=== PATIENT | female | born 1980 | race Hispanic/Latino ===

== ENCOUNTER 2017-07-27 16:53 | Emergency (ER) | payer SELFPAY ==
[~2017-07-27] VITALS: Ht 154.9 cm; Wt 65.8 kg
[~2017-07-27 16:53] MED LIST: LEVSIN-SL0.125 MG SL; NEXIUM20 MG PO; ZOFRAN ODT4 MG PO
== END 2017-07-27 17:19 | disposition home or self-care (01) ==
LOC: ED 16:53
DX: R05 Cough (principal); Z00.8 Encounter for other general examination

== ENCOUNTER 2017-12-08 02:05 | Emergency (ER) | payer OTHER ==
[~2017-12-08] VITALS: Ht 154.9 cm; Wt 65.8 kg
== END 2017-12-08 04:13 | disposition home or self-care (01) ==
LOC: ED 02:05
DX: R10.13 Epigastric pain (principal); F17.200 Nicotine dependence, unspecified, uncomplicated
CPT/HCPCS: 80053; 81001; 83690; 84703; 85025; 96374; 96375; 99284; J2270; J2405; J7030

== ENCOUNTER 2018-01-25 07:02 | Emergency (ER) | payer OTHER ==
[~2018-01-25] VITALS: Ht 154.9 cm; Wt 68.0 kg
[2018-01-25] MEDS ORDERED: NORCO 5-325 TA1 EACH PO (09:49)
[2018-01-25] MEDS ORDERED: OMEPRAZOLE20 MG PO (09:49)
[2018-01-25] MEDS ORDERED: PROMETHAZINE HC25 M1 PO (10:06)
== END 2018-01-25 10:15 | disposition home or self-care (01) ==
LOC: ED 07:02
DX: K44.9 Diaphragmatic hernia without obstruction or gangrene (principal); K29.70 Gastritis, unspecified, without bleeding; F17.200 Nicotine dependence, unspecified, uncomplicated
CPT/HCPCS: 74177; 80053; 81001; 83690; 84703; 85025; 96361; 96374; 96375; 99284; J1170; J1885; J2405; J2550; J7030; Q9967

== ENCOUNTER 2018-11-01 10:49 | Emergency (ER) | payer OTHER ==
[~2018-11-01] VITALS: Ht 154.9 cm; Wt 68.0 kg
[~2018-11-01 10:49] MED LIST changes: +AUGMENTIN 875-1 EACH PO; +KETOROLAC TROME10 MG PO; +NORCO 5-325 TA1 EACH PO; +OMEPRAZOLE20 MG PO; +PROMETHAZINE HC25 M1 PO
--- OUTSIDE RECORDS SUMMARY | 2018-11-01 10:56 | XMS ---
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 Security Restaurant Kitchen And Service Manager Events No recent Security Events currently on file CRITERIA MET - Group Notification - [facility] - Has Care Guidelines CARE PROVIDERS ESTEPHANIE ALMEIDA Nurse Practitioner: Women's Health 04/10/2018-Current PHONE: [phone] ESTEPHANIE ALMEIDA Primary Care Current PHONE: [phone] Darlin has no Care Guidelines for this patient. Care History Medical/Surgical 04/17/2018 [facility] Care Recommendation: - Patient DOES NOT have a PCP. - Please refer patient to [facility]: [address] [place] [address], [place] [address] This patient has had 5 or more Emergency Department visits in the last 12 months.\T\nbsp; Patient requires education on the scope and purpose of the ED as an acute care provider not a Primary Care Provider and should not be utilized for chronic conditions.\T\nbsp; If patient returns to ED please contact Community Health WorkerChristina at [phone]. These are guidelines and the provider should exercise clinical judgment when providing care. Meghan VISIT COUNT (12 MO.) 6 [facility] Gilles[facility] TOTAL 6 NOTE: Visits indicate total known visits. ED/UCC VISIT TRACKING (12 MO.) 11/01/2018 10:50 [facility] [place] TYPE: Emergency COMPLAINT: - COUGH,CHEST PRESSURE 04/13/2018 15:06 [facility] [place] TYPE: Emergency COMPLAINT: - POSS R LEG INFECTION DIAGNOSES: - Laceration without foreign body, right lower leg, subsequent encounter - Exposure to other specified factors, subsequent encounter - Local infection of the skin and subcutaneous tissue, unspecified - Nicotine dependence, unspecified, uncomplicated 04/09/2018 13:03 [facility] [place] TYPE: Emergency COMPLAINT: - WOUND CHECK,POST OP DIAGNOSES: - Nicotine dependence, unspecified, uncomplicated - Infection following a procedure, initial encounter - Encounter for surgical aftercare following surgery on the skin and subcutaneous tissue 04/05/2018 21:57 [facility] [place] TYPE: Emergency COMPLAINT: - RT LEG LAC/LT ARM LAC/INJURY DIAGNOSES: - Laceration without foreign body, right lower leg, initial encounter - Encounter for immunization - Contusion of right hand, initial encounter - Nicotine dependence, unspecified, uncomplicated - Striking against or struck by other objects, initial encounter 01/25/2018 07:02 [facility] [place] TYPE: Emergency COMPLAINT: - ABD PAIN DIAGNOSES: - Diaphragmatic hernia without obstruction or gangrene - Gastritis, unspecified, without bleeding - Epigastric pain - Nicotine dependence, unspecified, uncomplicated 12/08/2017 02:05 [facility] [place] TYPE: Emergency COMPLAINT: - CHEST PAIN DIAGNOSES: - Nicotine dependence, unspecified, uncomplicated - Epigastric pain INPATIENT VISIT TRACKING (12 MO.) No inpatient visits to display in this time frame [email or web address]
[2018-11-01] MEDS ORDERED: TYLENOL WITH C1 EACH PO (12:39)
== END 2018-11-01 13:25 | disposition home or self-care (01) ==
LOC: ED 10:49
DX: J06.9 Acute upper respiratory infection, unspecified (principal); F17.200 Nicotine dependence, unspecified, uncomplicated; Z90.49 Acquired absence of other specified parts of digestive tract
CPT/HCPCS: 99283

== ENCOUNTER 2018-11-12 09:48 | Emergency (ER) | payer OTHER ==
[~2018-11-12] VITALS: Ht 154.9 cm; Wt 77.1 kg
[~2018-11-12 09:48] MED LIST changes: +TYLENOL WITH C1 EACH PO
--- OUTSIDE RECORDS SUMMARY | 2018-11-12 09:52 | XMS ---
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 Security Drilling Engineering Manager Events No recent Security Events currently on file CRITERIA MET - - Has Care Guidelines - - 2 Visits in 30 Days CARE PROVIDERS ESTEPHANIE ALMEIDA Nurse Practitioner: Women's Health 04/10/2018-Current PHONE: [phone] ESTEPHANIE ALMEIDA Primary Care Current PHONE: [phone] Darlin has no Care Guidelines for this patient. Care History Medical/Surgical 11/02/2018 [facility] - Patient is currently established with [facility]. If patient is seen in the ED during business hours. Please contact CHWs at [facility]. Care Recommendation: This patient has had 5 or more Emergency Department visits in the last 12 months.\T\nbsp; Patient requires education on the scope and purpose of the ED as an acute care provider not a Primary Care Provider and should not be utilized for chronic conditions.\T\nbsp; These are guidelines and the provider should exercise clinical judgment when providing care. E.D. VISIT COUNT (12 MO.) 7 GOLDY Gillespie TOTAL 7 NOTE: Visits indicate total known visits. ED/UCC VISIT TRACKING (12 MO.) 11/12/2018 09:49 [facility] [place] TYPE: Emergency COMPLAINT: - ABD PAIN 11/01/2018 10:50 [facility] [place] TYPE: Emergency COMPLAINT: - COUGH,CHEST PRESSURE DIAGNOSES: - Acute upper respiratory infection, unspecified - Nicotine dependence, unspecified, uncomplicated - Acquired absence of other specified parts of digestive tract - Cough 04/13/2018 15:06 [facility] [place] TYPE: Emergency [...] by other objects, initial encounter 01/25/2018 07:02 [facility] [place] TYPE: Emergency COMPLAINT: - ABD PAIN DIAGNOSES: - Diaphragmatic hernia without obstruction or gangrene - Gastritis, unspecified, without bleeding - Epigastric pain - Nicotine dependence, unspecified, uncomplicated 12/08/2017 02:05 [facility] [place] TYPE: Emergency COMPLAINT: - CHEST PAIN DIAGNOSES: - Nicotine dependence, unspecified, uncomplicated - Epigastric pain INPATIENT VISIT TRACKING (12 MO.) No inpatient visits to display in this time frame [email or web address]
[2018-11-12] MEDS ORDERED: CYCLOBENZAPRINE5 MG PO (16:20)
[2018-11-12] MEDS ORDERED: FERROUS FUMARA324 MG PO (16:20)
== END 2018-11-12 16:40 | disposition home or self-care (01) ==
LOC: ED 09:48
DX: R10.9 Unspecified abdominal pain (principal); G43.909 Migraine, unspecified, not intractable, without status migrainosus; F17.200 Nicotine dependence, unspecified, uncomplicated
CPT/HCPCS: 36415; 74177; 80053; 81001; 83690; 85025; 96361; 99284-25; 99406; J1885; J7030; Q9967

== ENCOUNTER 2019-02-24 09:27 | Emergency (ER) | payer OTHER ==
[~2019-02-24] VITALS: Ht 154.9 cm; Wt 77.1 kg
[~2019-02-24 09:27] MED LIST changes: +CYCLOBENZAPRINE5 MG PO; +FERROUS FUMARA324 MG PO
--- OUTSIDE RECORDS SUMMARY | 2019-02-24 09:30 | XMS ---
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 Security Muskrat Trapper Events No recent Security Events currently on file CRITERIA MET - [facility] - Has Care Guidelines CARE PROVIDERS ESTEPHANIE ALMEIDA Nurse Practitioner: Women's Health 04/10/2018-Current PHONE: [phone] ESTEPHANIE ALMEIDA Primary Care Current PHONE: [phone] Darlin has no Care Guidelines for this patient. Care History Medical/Surgical 11/23/2018 [facility] - CHW MADE REFERRAL TO [facility] -CASE MANAGEMENT - PATIENT DECLINED SERVICES/HELP FROM [facility]. 11/02/2018 [facility] - Patient is currently established with [facility]. If patient is seen in the ED during business hours. Please contact CHWs at [facility]. Care Recommendation: This patient has had 5 [...] known visits. ED/UCC VISIT TRACKING (12 MO.) 02/24/2019 09:27 [facility] [place] TYPE: Emergency COMPLAINT: - HEADACHE, VOMITING 11/12/2018 09:49 [facility] [place] TYPE: Emergency COMPLAINT: - ABD PAIN DIAGNOSES: - Migraine, unspecified, not intractable, without status migrainosus - Unspecified abdominal pain - Nausea - Nicotine dependence, unspecified, uncomplicated 11/01/2018 10:50 [facility] [place] TYPE: Emergency [...] the skin and subcutaneous tissue 04/05/2018 21:[address] [facility] [place] TYPE: Emergency COMPLAINT: - RT LEG LAC/LT ARM LAC/INJURY DIAGNOSES: - Laceration without foreign body, right lower leg, initial encounter - Encounter for immunization - Contusion of right hand, initial encounter - Nicotine dependence, unspecified, uncomplicated - Striking against or struck by other objects, initial encounter INPATIENT VISIT TRACKING (12 MO.) No inpatient visits to display in this time frame [email or web address]
== END 2019-02-24 10:25 | disposition home or self-care (01) ==
LOC: ED 09:27
DX: R51 Headache (principal); F17.200 Nicotine dependence, unspecified, uncomplicated
CPT/HCPCS: 96372; 99283-25; J1885

== ENCOUNTER 2019-06-22 23:34 | Emergency (ER) | payer OTHER ==
[~2019-06-22] VITALS: Ht 154.9 cm; Wt 77.1 kg
--- OUTSIDE RECORDS SUMMARY | 2019-06-22 23:36 | XMS ---
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 Security Label Drier Events No recent Security Events currently on file CRITERIA MET - [facility] Care Guidelines CARE PROVIDERS Umer Ordonez Internal Medicine: Pulmonary Disease 04/03/2019-Current PHONE: Unknown ESTEPHANIE ALMEIDA Nurse Practitioner: Women's Health 04/10/2018-Current PHONE: [phone] ESTEPHANIE ALMEIDA Primary Care Current PHONE: [phone] Darlin has no Care Guidelines for this patient. Care History Medical/Surgical 11/23/2018 [facility] - CHW MADE REFERRAL TO [facility] -CASE MANAGEMENT - PATIENT DECLINED SERVICES/HELP FROM [facility]. 11/02/2018 [facility] - Patient is currently established with [facility]. If patient is seen in the ED during business hours. Please contact CHWs at [facility]. Care Recommendation: This patient has had 5 [...] providing care. E.D. VISIT COUNT (12 MO.) 5 [facility]. TOTAL 5 NOTE: Visits indicate total known visits. ED/UCC VISIT TRACKING (12 MO.) 06/22/2019 23:[address] [facility] [place] TYPE: Emergency COMPLAINT: - SKIN PROBLEM 04/02/2019 16:[address] [facility] [address] [facility] [place] TYPE: Emergency COMPLAINT: - MIGRAINE DIAGNOSES: - Migraine, unsp, not intractable, without status migrainosus - Nicotine dependence, unspecified, uncomplicated 02/24/2019 09:[address] [facility] [address] [facility] [place] TYPE: Emergency COMPLAINT: - HEADACHE, VOMITING DIAGNOSES: - Nicotine dependence, unspecified, uncomplicated - Headache 11/12/2018 09:[address] [facility] [address] [facility] [place] TYPE: Emergency COMPLAINT: - ABD PAIN DIAGNOSES: - Migraine, unsp, not intractable, without status migrainosus - Unspecified abdominal pain - Nausea - Nicotine dependence, unspecified, uncomplicated 11/01/2018 10:[address] [facility] [place] TYPE: Emergency COMPLAINT: - COUGH,CHEST PRESSURE DIAGNOSES: - Acute upper respiratory infection, unspecified - Nicotine dependence, unspecified, uncomplicated - Acquired absence of other specified parts of digestive tract - Cough INPATIENT VISIT TRACKING (12 MO.) No inpatient visits to display in this time frame [id number]
[2019-06-23] MEDS ORDERED: ANUSOL-HC30 GM PR (00:37)
[2019-06-23] MEDS ORDERED: COLACE100 MG PO (00:37)
[2019-06-23] MEDS ORDERED: TRAMADOL HCL50 MG PO (00:37)
== END 2019-06-23 01:00 | disposition home or self-care (01) ==
LOC: ED 23:34
DX: K64.4 Residual hemorrhoidal skin tags (principal); F17.200 Nicotine dependence, unspecified, uncomplicated
CPT/HCPCS: 99282

== ENCOUNTER 2019-07-06 04:30 | Emergency (ER) | payer OTHER ==
[~2019-07-06] VITALS: Ht 154.9 cm; Wt 77.1 kg
[~2019-07-06 04:30] MED LIST changes: +ANUSOL-HC30 GM PR; +COLACE100 MG PO; +TRAMADOL HCL50 MG PO
--- OUTSIDE RECORDS SUMMARY | 2019-07-06 04:32 | XMS ---
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 Security Career Services Officer Events No recent Security Events currently on file CRITERIA MET - [facility] - Has Care Guidelines - [facility] - 2 Visits in 30 Days CARE PROVIDERS Umer Ordonez Internal Medicine: Pulmonary Disease 04/03/2019-Current PHONE: Unknown ESTEPHANIE ALMEIDA Nurse Practitioner: Women's Health 04/10/2018-Current PHONE: [phone] ESTEPHANIE ALMEIDA Primary Care Current PHONE: [phone] Darlin has no Care Guidelines for this patient. Care History Medical/Surgical 11/23/2018 [facility] - W MADE REFERRAL TO [facility] -CASE MANAGEMENT - PATIENT DECLINED SERVICES/HELP FROM [facility]. 11/02/2018 [facility] - Patient is currently established with [facility]. If patient is seen in the ED during business hours. Please contact CHWs at [facility]. Care Recommendation: This patient has had [...] providing care. E.D. VISIT COUNT (12 MO.) 6 [facility]. TOTAL 6 NOTE: Visits indicate total known visits. ED/UCC VISIT TRACKING (12 MO.) 07/06/2019 04:[address] [facility] [place] TYPE: Emergency COMPLAINT: - RT LEG WOUND 06/22/2019 23:[address] [facility] [place] TYPE: Emergency COMPLAINT: - SKIN PROBLEM DIAGNOSES: - Residual hemorrhoidal skin tags - Nicotine dependence, unspecified, uncomplicated - Disorder of the skin and subcutaneous tissue, unspecified 04/02/2019 16:[address] [facility] [place] TYPE: Emergency COMPLAINT: - MIGRAINE DIAGNOSES: - Migraine, unsp, not intractable, without status migrainosus - Nicotine dependence, unspecified, uncomplicated 02/24/2019 09:[address] [facility] [place] TYPE: Emergency COMPLAINT: - HEADACHE, VOMITING DIAGNOSES: - Nicotine dependence, unspecified, uncomplicated - Headache 11/12/2018 09:49 [facility] [place] TYPE: Emergency [...] visits to display in this time frame [id number]
== END 2019-07-06 05:17 | disposition home or self-care (01) ==
LOC: ED 04:30
DX: S81.811A Laceration without foreign body, right lower leg, initial encounter (principal); F17.200 Nicotine dependence, unspecified, uncomplicated; Y04.0XXA Assault by unarmed brawl or fight, initial encounter
CPT/HCPCS: 90471; 90715; 99282-25

== ENCOUNTER 2019-09-15 00:12 | Emergency (ER) | payer OTHER ==
[~2019-09-15] VITALS: Ht 154.9 cm; Wt 74.8 kg
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
[2019-09-15] MEDS ORDERED: ZOFRAN4 MG PO (02:59)
[2019-09-15] MEDS ORDERED: PROTONIX40 MG PO (02:59)
== END 2019-09-15 03:17 | disposition home or self-care (01) ==
LOC: ED 00:12
DX: R10.9 Unspecified abdominal pain (principal); M79.642 Pain in left hand; M25.572 Pain in left ankle and joints of left foot; F17.200 Nicotine dependence, unspecified, uncomplicated
CPT/HCPCS: 73130; 73610; 73630; 80053; 81001; 83690; 84703; 85025; 96361; 96374; 96375; 96376; 99284-25; C9113; J1885; J2405; J7030

== ENCOUNTER 2019-10-17 09:42 | Emergency (ER) | payer OTHER ==
[~2019-10-17] VITALS: Ht 154.9 cm; Wt 74.8 kg
[~2019-10-17 09:42] MED LIST changes: +PROTONIX40 MG PO; +ZOFRAN4 MG PO
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
== END 2019-10-17 12:42 | disposition home or self-care (01) ==
LOC: ED 09:42
DX: G43.909 Migraine, unspecified, not intractable, without status migrainosus (principal); F17.200 Nicotine dependence, unspecified, uncomplicated; Z79.899 Other long term (current) drug therapy
CPT/HCPCS: 96372; 99283; 99406; J1100; J1200; J2765

== ENCOUNTER 2019-12-11 18:42 | Emergency (ER) | payer OTHER ==
[~2019-12-11] VITALS: Ht 154.9 cm; Wt 74.8 kg
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
[2019-12-11] MEDS ORDERED: FEOSOL325 MG PO (19:26)
== END 2019-12-11 19:53 | disposition home or self-care (01) ==
LOC: ED 18:42
DX: J06.9 Acute upper respiratory infection, unspecified (principal); L29.9 Pruritus, unspecified; Z20.5 Contact with and (suspected) exposure to viral hepatitis; F17.200 Nicotine dependence, unspecified, uncomplicated; Z90.49 Acquired absence of other specified parts of digestive tract; Z79.899 Other long term (current) drug therapy
CPT/HCPCS: 99283

== ENCOUNTER 2020-02-04 15:44 | Emergency (ER) | payer OTHER ==
[~2020-02-04] VITALS: Ht 154.9 cm; Wt 68.0 kg
[~2020-02-04 15:44] MED LIST changes: +FEOSOL325 MG PO
--- OUTSIDE RECORDS SUMMARY | 2020-02-04 15:46 | XMS ---
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 Security Automation Machine Operator Events No recent Security Events currently on file CRITERIA MET - [facility] - Has Care Guidelines CARE PROVIDERS ESTEPHANIE ALMEIDA Nurse Practitioner: Women's Health 04/10/2018-Current PHONE: [phone] CYDNEY GARCIA Internal Medicine: Pulmonary Disease 04/03/2019-Current PHONE: Unknown Darlin has no Care Guidelines for this patient. Care History Medical/Surgical 12/12/2019 [facility] - Patient is currently established with [facility]. If patient is seen in the ED during business hours. Please contact CHWs at [facility]. Care Recommendation: If this patient has had 5 or more Emergency Department visits in the last 12 months.\T\nbsp; Patient will require education on the scope and purpose of the ED as an acute care provider not a Primary Care Provider and should not be utilized for chronic conditions.\T\nbsp; These are guidelines and the provider should exercise clinical judgment when providing care. 10/18/2019 [facility] - NO PCP LETTER SENT TO PATIENT. 09/16/2019 [facility] This patient is not currently established with our clinic. Meghan VISIT COUNT (12 MO.) 8 [facility] René TOTAL 8 NOTE: Visits indicate total known visits. ED/UCC VISIT TRACKING (12 MO.) 02/04/2020 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
[2020-02-04] MEDS ORDERED: OMEPRAZOLE40 MG PO (16:01)
[2020-02-04] MEDS ORDERED: NORCO 5-325 TA1 EACH PO (16:40)
[2020-02-04] MEDS ORDERED: NAPROSYN500 MG PO (16:40)
== END 2020-02-04 17:12 | disposition home or self-care (01) ==
LOC: ED 15:44
DX: S92.515A Nondisplaced fracture of proximal phalanx of left lesser toe(s), initial encounter for closed fracture (principal); G43.909 Migraine, unspecified, not intractable, without status migrainosus; F17.200 Nicotine dependence, unspecified, uncomplicated; Z79.899 Other long term (current) drug therapy; W22.01XA Walked into wall, initial encounter
CPT/HCPCS: 73630; 99283-25

== ENCOUNTER 2020-02-09 23:44 | Emergency (ER) | payer OTHER ==
[~2020-02-09] VITALS: Ht 154.9 cm; Wt 68.0 kg
[~2020-02-09 23:44] MED LIST changes: +NAPROSYN500 MG PO; +OMEPRAZOLE40 MG PO
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
== END 2020-02-10 00:55 | disposition home or self-care (01) ==
LOC: ED 23:44
DX: M79.662 Pain in left lower leg (principal); M79.652 Pain in left thigh; G43.909 Migraine, unspecified, not intractable, without status migrainosus; F17.200 Nicotine dependence, unspecified, uncomplicated; Z79.899 Other long term (current) drug therapy
CPT/HCPCS: 85379; 99283; A9270

== ENCOUNTER 2020-02-22 14:14 | Emergency (ER) | payer OTHER ==
[~2020-02-22] VITALS: Ht 154.9 cm; Wt 68.0 kg
--- OUTSIDE RECORDS SUMMARY | 2020-02-22 14:16 | XMS ---
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 Care History Medical/Surgical 02/11/2020 [facility] Patient scheduled for follow up with Dr. Madera on 02/26/2020. 02/05/2020 [facility] Have asked MA to coordinate ED follow up apt for Patient. 12/12/2019 [facility] - Patient is currently established with [facility]. If patient is seen in the ED during business hours. Please contact CHWs at [facility]. Care Recommendation: If this patient has had 5 or more Emergency Department visits in the last 12 months.\T\nbsp; Patient will require education on the scope and purpose of the ED as an acute care provider not a Primary Care Provider and should not be utilized for chronic conditions.\T\nbsp; These are guidelines and the provider should exercise clinical judgment when providing care. EYony. VISIT COUNT (12 MO.) 10 [facility] Gillespie TOTAL 10 NOTE: Visits indicate total known visits. 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 - Nondisplaced fracture of proximal phalanx of left lesser toe( - Nicotine dependence, unspecified, uncomplicated - Pain in left toe(s) - Walked into wall, initial encounter - Migraine, unspecified, not intractable, without status migrai 12/11/2019 18:43 [facility] [place] TYPE: Emergency COMPLAINT: - SKIN PROBLEM/SORE THROAT DIAGNOSES: - Contact with and (suspected) exposure to viral hepatitis - 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 [facility] [place] TYPE: Emergency COMPLAINT: - MIGRAINE DIAGNOSES: - Migraine, unspecified, not intractable, without status migrai - Nicotine dependence, unspecified, uncomplicated 02/24/2019 09:[address] [facility] [facility] [place] TYPE: Emergency COMPLAINT: - HEADACHE, VOMITING DIAGNOSES: - Nicotine dependence, unspecified, uncomplicated - Headache INPATIENT VISIT TRACKING (12 MO.) No inpatient visits to display in this time frame [email or web address]
[2020-02-22] MEDS ORDERED: FLAGYL500 MG PO (14:22)
[2020-02-22] MEDS ORDERED: BISMATROL262 MG PO (14:23)
[2020-02-22] MEDS ORDERED: TETRACYCLINE H500 MG PO (14:23)
--- NOTE | 2020-02-23 11:40 | EKG ---
[facility] [address] [facility] [place], [place] [address] Signed Normal sinus rhythm Normal ECG No previous ECGs available Confirmed by GHAZALA LUO MD ([id number]) on 02/23/2020 11:40:09 AM Electronically Signed By: GHAZALA LUO MD 02/23/20 1140 PATIENT NAME: HERBERTH GURROLA Electrocardiogram DATE OF : 76 PHYSICIAN: GHAZALA LUO MD REPORT #: [id number] REPORT IS CONFIDENTIAL AND NOT TO BE RELEASED WITHOUT AUTHORIZATION
== END 2020-02-22 16:30 | disposition home or self-care (01) ==
LOC: ED 14:14
DX: K27.9 Peptic ulcer, site unspecified, unspecified as acute or chronic, without hemorrhage or perforation (principal); G43.909 Migraine, unspecified, not intractable, without status migrainosus; F17.200 Nicotine dependence, unspecified, uncomplicated; Z79.899 Other long term (current) drug therapy
CPT/HCPCS: 71045; 80053; 83690; 83735; 84484; 85025; 93005; 93010; 96374; 99285-25; J1885

== ENCOUNTER 2020-04-12 11:10 | Emergency (ER) | payer OTHER ==
[~2020-04-12] VITALS: Ht 154.9 cm; Wt 68.0 kg
[~2020-04-12 11:10] MED LIST changes: +BISMATROL262 MG PO; +FLAGYL500 MG PO; +TETRACYCLINE H500 MG PO
--- OUTSIDE RECORDS SUMMARY | 2020-04-12 11:14 | XMS ---
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 Care History Medical/Surgical 02/24/2020 [facility] Patient was advised that walk in clinic closed at time of service in ED and care ride would not take her to Urgent Care at [facility] without charging her.\T\nbsp; Patient aware of scheduled\T\nbsp; follow up on 02/26/[address] Ordonez. 02/11/2020 [facility] Patient scheduled for follow up with Dr. Ordonez on 02/26/2020. 02/05/2020 [facility] Have asked [place] to coordinate ED follow up apt for Patient. [place] VISIT COUNT (12 MO.) 9 [facility] H. TOTAL 9 NOTE: Visits indicate total known visits. ED/C VISIT TRACKING (12 MO.) 04/12/2020 11:[address] [facility] [facility] [place] TYPE: Emergency COMPLAINT: - ABD PAIN 02/22/2020 14:15 [facility] [place] TYPE: Emergency COMPLAINT: - CHEST PAIN DIAGNOSES: - Nicotine dependence, unspecified, uncomplicated - Other jail (current) drug therapy - Migraine, unspecified, not intractable, without status migrai - Peptic ulcer, site unspecified, unspecified as acute or chron - Chest pain, unspecified 02/09/2020 23:45 [facility] [place] TYPE: Emergency COMPLAINT: - LEG INJURY/PAIN DIAGNOSES: - Pain in left lower leg - Other jail (current) drug therapy - Migraine, unspecified, not intractable, without status migrai - Pain in left lower leg - Pain in left thigh - Nicotine dependence, unspecified, uncomplicated 02/04/2020 15:45 [facility] [place] TYPE: Emergency COMPLAINT: - L FOOT INJURY DIAGNOSES: - Other jail (current) drug therapy - Nondisplaced fracture of proximal phalanx of left lesser toe( - Nicotine dependence, unspecified, uncomplicated - Pain in left toe(s) - Walked into wall, initial encounter - Migraine, unspecified, not intractable, without status migrai 12/11/2019 18:43 [facility] [place] TYPE: Emergency COMPLAINT: - SKIN PROBLEM/SORE THROAT DIAGNOSES: - Contact with and (suspected) exposure to viral hepatitis - Other jail (current) drug therapy - Pruritus, unspecified - Acquired absence of other specified parts of digestive tract - Acute upper respiratory infection, unspecified - Nicotine dependence, unspecified, uncomplicated [facility] COMPLAINT: - POSS SPIDER BITE, NAUSEA DIAGNOSES: - Headache - 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
[2020-04-12] MEDS ORDERED: CARAFATE1 GM PO (13:32)
== END 2020-04-12 14:00 | disposition home or self-care (01) ==
LOC: ED 11:10
DX: K27.9 Peptic ulcer, site unspecified, unspecified as acute or chronic, without hemorrhage or perforation (principal); G43.909 Migraine, unspecified, not intractable, without status migrainosus; F17.200 Nicotine dependence, unspecified, uncomplicated; Z79.899 Other long term (current) drug therapy
CPT/HCPCS: 80053; 81001; 83690; 84703; 85025; 96372; 99284; J1885; J2270

== ENCOUNTER 2020-04-21 05:45 | Day surgery (SDC) | payer OTHER ==
[~2020-04-21] VITALS: Ht 154.9 cm; Wt 75.8 kg
[~2020-04-21 05:45] MED LIST changes: +CARAFATE1 GM PO
[2020-04-21] MEDS ORDERED: IRON325 M1 PO (05:59)
--- NOTE | 2020-04-21 08:08 | NUR ---
04/21/20 0808 Corrine Garza 0803 PATIENT ARRIVES TO PACU SLEEPING, OPENS EYES TO VERBAL STIMULI, THEN BACK TO SLEEP RESP EVEN AND UNLABORED, SNORING. NC AT 2 LITERS.
--- NOTE | 2020-04-21 09:34 | OR ---
[facility] [address] [place], [place] [address] Signed DATE OF OPERATION: 04/21/2020 SURGEON: Karissa Gomez MD PREOPERATIVE DIAGNOSES: 1. Iron deficiency anemia. 2. Epigastric abdominal pain. 3. History of Helicobacter pylori. 4. Heartburn. 5. Nausea. 6. Diarrhea. POSTOPERATIVE DIAGNOSES: 1. Mild diffuse gastroduodenitis. 2. Shallow antral gastric ulcer. 3. Small hiatal hernia. 4. A 3 mm polyp at 30 cm. 5. Minimal internal hemorrhoids. PROCEDURES: 1. EGD with CLOtest and biopsies of the duodenum, pyloric bulb, antrum, and GE junction. 2. Colonoscopy with cold biopsies of the terminal ileum and throughout the colon along with a hot biopsy of the polyp. ESTIMATED BLOOD LOSS: None. INDICATIONS: Herberth is a 39-year-old female, asked to see me for both upper and lower endoscopy. She is having trouble with iron deficiency anemia. She also told me she is having heavy periods and had to double up on her pads and so forth. She has had a previous tubal ligation. She is aware that she may need a hysterectomy. She is also describing significant epigastric abdominal pain. Her H pylori stool antigen came back positive. She took omeprazole, bismuth, tetracycline, and metronidazole. Despite this, she continues upper abdominal pain. She has moved up here from [place], [place]. Back in [place], she had her gallbladder removed in 2005. In the office, I gave her a pamphlet on both upper and lower endoscopy. We reviewed the nature of the 2 tests along with the risks including, but not limited to gas bloating, crampy abdominal pain, bleeding, perforation requiring surgery, and missed diagnosis. We also discussed the need for IV conscious sedation. She had expressed understanding and wished to proceed. Electronically Signed By: KARISSA GOMEZ MD 04/21/20 0934 PATIENT NAME: HERBERTH GURROLA OPERATIVE REPORT DATE OF : 76 REPORT #: [id number] PHYSICIAN: KARISSA GOMEZ MD PCP: ESTELITA LAMAS MD REPORT IS CONFIDENTIAL AND NOT TO BE RELEASED WITHOUT AUTHORIZATION [facility] [address] [place], [place] [address] Signed PROCEDURE NOTE: Herberth was taken into our endoscopy suite and placed in the supine semi-recumbent position. She was given a total of 6 mg of Versed and 150 mcg of fentanyl to cover both cases. The posterior oropharynx was anesthetized with lidocaine spray. A bite block was utilized for the case. The adult gastroscope was introduced and advanced under direct visualization of camera, out into the third portion of the duodenum without difficulty. The duodenum itself looked healthy. We took a biopsy from the duodenum because of the history of diarrhea. She had some mild diffuse inflammatory changes of the pyloric bulb in her stomach. We went ahead and took a biopsy of the pyloric bulb in the antrum for pathologic review. She had what looks like a very shallow ulceration in the antrum. We took a biopsy of that for pathologic review. We took another biopsy of the antrum for CLOtest. The incisura body and fundus of the stomach were unremarkable except for very mild inflammatory changes. Upon retroflexion of scope, she does have a small hiatal hernia. The scope was withdrawn up through the area of the GE junction, which was compliant without stricture. There was no gastric or esophageal varices. She had very minimal disruption to her Z-line. There was no Jeffers's mucosa and no distal esophagitis. We took a biopsy of the edge of the Z-line for pathologic review. The middle and upper esophagus were unremarkable. After this, the gas had been suctioned out and the gastroscope was removed. Herberth tolerated her upper endoscopy quite well. Herberth was rotated into the left lateral decubitus position. She was maintained on IV sedation with the Versed and fentanyl. A digital rectal exam was performed and this was unremarkable. The adult colonoscope was introduced and advanced under direct visualization of camera without difficulty. Her prep was quite excellent. We could easily see the appendiceal orifice and the ileocecal valve. We took pictures throughout for photodocumentation. We turned the camera into the terminal ileum only 3 to 5 cm. We could not get the camera to advance any further. It looked quite healthy. We went ahead and took a biopsy out of the terminal ileum because of the history of diarrhea. The scope was then slowly withdrawn through the colon. We took several random biopsies throughout the colon because of the history of diarrhea. Otherwise, the colon appeared quite healthy. She had a very flat 3 mm polyp back at 30 cm. We removed it easily with a hot biopsy forceps. The rectum was unremarkable. Upon retroflexion of the scope, she has very small internal hemorrhoid tissue. After this, the gas was suctioned out and the colonoscope was removed. Herberth tolerated the procedure quite well. RECOMMENDATIONS: I will see Herberth back in my office in 7 to 14 days to review her results. Electronically Signed By: KARISSA GOMEZ MD 04/21/20 0934 PATIENT NAME: HERBERTH GURROLA OPERATIVE REPORT DATE OF : 76 REPORT #: [id number] PHYSICIAN: KARISSA GOMEZ MD PCP: ESTELITA LAMAS MD REPORT IS CONFIDENTIAL AND NOT TO BE RELEASED WITHOUT AUTHORIZATION [address] [place], [place] [address] Signed Karissa Gomez MD [facility]/MODL /[id number] cc: MD Karissa Lane MD Copies: KARISSA GOMEZ MD ~ Electronically Signed By: KARISSA GOMEZ MD 04/21/20 0934 PATIENT NAME: HERBERTH GURROLA OPERATIVE REPORT DATE OF : 76 REPORT #: [id number] PHYSICIAN: KARISSA GOMEZ MD PCP: ESTELITA LAMAS MD REPORT IS CONFIDENTIAL AND NOT TO BE RELEASED WITHOUT AUTHORIZATION
--- NOTE | 2020-04-22 16:55 | PATH ---
[facility] [address] [place], [place] [address] Signed SPECIMEN(S): A DUODENUM SPECIMEN(S): B ANTRUM/PYLORUS, BULB SPECIMEN(S): C ANTRUM/PYLORUS SPECIMEN(S): D GE JUNCTION SPECIMEN(S): E COLON POLYP AT 40 CM SPECIMEN(S): F TERMINAL ILEUM SPECIMEN(S): G COLON SPECIMEN SOURCE: A. DUODENUM B. ANTRUM/PYLORUS, BULB C. ANTRUM/PYLORUS D. GE JUNCTION E. COLON POLYP AT 40 CM F. TERMINAL ILEUM G. COLON CLINICAL HISTORY: Iron deficient anemia. Epigastric pain, positive H. pylori, diarrhea. Rule out celiac. EGD/colonoscopy. MICROSCOPIC DESCRIPTION: Histologic sections of all submitted blocks are examined by light microscopy. These findings, together with the gross examination, support the pathologic diagnosis. FINAL PATHOLOGIC DIAGNOSIS: A. Duodenum, biopsy: - Duodenal mucosa with no histopathologic abnormality. - Negative for increased intraepithelial lymphocytes. - Negative for dysplasia or malignancy. B. Stomach, antrum/pylorus "bulb", biopsy: - Duodenal mucosa with no histopathologic abnormality. - Negative for increased intraepithelial lymphocytes. - Negative for Helicobacter organisms on HE stain. - Negative for dysplasia or malignancy. C. Stomach, antrum/pylorus, biopsy: - Antral mucosa with chronic, inactive gastritis. - Negative for Helicobacter organisms. - Negative for dysplasia or malignancy. D. Gastroesophageal junction, biopsy: - Cardia type gastric mucosa with chronic, inactive gastritis. PATIENT NAME: HERBERTH GURROLA PATHOLOGY DATE OF : 76 REPORT #: [id number] PHYSICIAN: KIP MARTIN PCP: ESTELITA LAMAS MD REPORT IS CONFIDENTIAL AND NOT TO BE RELEASED WITHOUT AUTHORIZATION [facility] [address] [place], [place] [address] Signed - Negative for intestinal metaplasia, dysplasia, or malignancy. E. Colon, polyp at 40 cm, polypectomy: - Severely cauterized colonic mucosa. - Negative for dysplasia or malignancy. F. Terminal ileum, biopsy: - Ileal mucosa with no histopathologic abnormality. - Negative for active inflammation or granulomata. - Negative for dysplasia or malignancy. G. Colon, biopsy: - Fragments of colonic mucosa with no histopathologic abnormality. - Negative for active, chronic, or microscopic colitis. - Negative for dysplasia or malignancy. COMMENT: Regarding specimen C: An immunohistochemical stain for H. pylori (with appropriately staining controls) is performed and is negative for Helicobacter organisms. Regarding specimen E: The tissue could be a cauterized hyperplastic polyp. If clinical concern remains, a repeat biopsy may be helpful. NAL:cml:C2NR GROSS DESCRIPTION: Seven specimens are received in seven containers, labeled "SS." A. The specimen, labeled "SS, 1," and designated on the requisition "duodenal biopsy," is received in formalin and consists of one vaca soft tissue fragment that measures 0.3 cm in greatest dimension. The specimen is entirely submitted in cassette (A1). B. The specimen, labeled "SS, 2," and designated on the requisition "antrum biopsy bulb," is received in formalin and consists of one vaca soft tissue fragment( that measures 0.3 cm in greatest dimension. The specimen is entirely submitted in cassette (B1). C. The specimen, labeled "SS, 3," and designated on the requisition "antrum biopsy," is received in formalin and consists of one vaca soft tissue fragment that measures 0.4 cm in greatest dimension. The specimen is entirely submitted in cassette (C1). D. The specimen, labeled "SS, 4," and designated on the requisition "EG junction biopsy," is received in formalin and consists of one vaca soft tissue fragment that measures 0.3 cm in greatest dimension. The specimen is entirely submitted in cassette (D1). E. The specimen, labeled "SS, 5," and designated on the requisition "colon PATIENT NAME: HERBERTH GURROLA PATHOLOGY DATE OF : 76 REPORT #: [id number] PHYSICIAN: KIP MARTIN PCP: ESTELITA LAMAS MD REPORT IS CONFIDENTIAL AND NOT TO BE RELEASED WITHOUT AUTHORIZATION [facility] [address] [place], [place] [address] Signed biopsy at 40 cm," is received in formalin and consists of one vaca soft tissue fragment that measures 0.4 cm in greatest dimension. The specimen is entirely submitted in cassette (E1). F. The specimen, labeled "SS, 6," and designated on the requisition "terminal ileum biopsy," is received in formalin and consists of two vaca soft tissue fragments that measure 0.1 and 0.4 cm in greatest dimension. The specimen is entirely submitted in cassette (F1). G. The specimen, labeled "SS, 7," and designated on the requisition "colon biopsy," is received in formalin and consists of four elongated vaca soft tissue fragments that measure 0.1 up to 0.4 cm in greatest dimension. The specimen is entirely submitted in cassette (G1). AI (under the direct supervision of a pathologist) The Gross Description was prepared using a voice recognition system. The report was reviewed for accuracy; however, sound-alike word errors, addition and/or deletions may occur. If there is any question about this report, please contact Client Services. ADDITIONAL NOTES: Immunohistochemical and/or in situ hybridization studies were performed on this case with the appropriate positive controls that react as expected. This test was developed and its performance characteristics determined by [facility]. It has not been cleared or approved by the U.S. Food and Drug Administration. The FDA has determined that such clearance or approval is not necessary. This test is used for clinical purposes. It should not be regarded as investigational or for research. [facility] is certified under the Clinical Laboratory Improvement Amendments of 1988 (CLIA) as qualified to perform high complexity clinical laboratory testing. PERFORMING LABORATORY: The technical component was performed by [facility], [address] [place] [id number] (Corporate Wellness Coordinator: Emma Petersen MD; CLIA# [id number]). [facility], [address] [place] [address] (CLIA# [id number]). Diagnostician: Jennifer Plaza MD Pathologist Electronically Signed 04/22/2020 PATIENT NAME: HERBERTH GURROLA PATHOLOGY DATE OF : 76 REPORT #: [id number] PHYSICIAN: [employer] PATHOLOGY PCP: ESTELITA LAMAS MD REPORT IS CONFIDENTIAL AND NOT TO BE RELEASED WITHOUT AUTHORIZATION [facility] [address] [facility], [place] [address] Signed Copies: ~ PATIENT NAME: HERBERTH GURROLA PATHOLOGY DATE OF : 76 REPORT #: [id number] PHYSICIAN: KIP PATHOLOGY PCP: ESTELITA LAMAS MD REPORT IS CONFIDENTIAL AND NOT TO BE RELEASED WITHOUT AUTHORIZATION
== END 2020-04-21 08:55 | disposition home or self-care (01) ==
LOC: OPS 05:45 → DS 05:45 → OPS 06:45 → DS 06:45 → OPS 08:55 → DS 04-30 11:45
PROVIDERS: Colon & Rectal Surgery
PROC: 0DBE8ZX Excision of Large Intestine, Via Natural or Artificial Opening Endoscopic, Diagnostic (ICD-10-PCS; 2020-04-21)
PROC: 0DB98ZX Excision of Duodenum, Via Natural or Artificial Opening Endoscopic, Diagnostic (ICD-10-PCS; 2020-04-21)
PROC: 0DB78ZX Excision of Stomach, Pylorus, Via Natural or Artificial Opening Endoscopic, Diagnostic (ICD-10-PCS; 2020-04-21)
PROC: 0DB48ZX Excision of Esophagogastric Junction, Via Natural or Artificial Opening Endoscopic, Diagnostic (ICD-10-PCS; 2020-04-21)
PROC: 0DB Gastrointestinal System, Excision (ICD-10-PCS; principal; 2020-04-21 06:45)
PROC: 0DBE8ZZ Excision of Large Intestine, Via Natural or Artificial Opening Endoscopic (ICD-10-PCS; 2020-04-21 06:45)
DX: K63.5 Polyp of colon (principal); K64.8 Other hemorrhoids; K29.50 Unspecified chronic gastritis without bleeding; K44.9 Diaphragmatic hernia without obstruction or gangrene; K21.9 Gastro-esophageal reflux disease without esophagitis; F17.210 Nicotine dependence, cigarettes, uncomplicated; Z79.899 Other long term (current) drug therapy
CPT/HCPCS: 86677; 99153; G0500; J2250; J3010; J7121

== ENCOUNTER 2020-05-28 02:10 | Emergency (ER) | payer OTHER ==
[~2020-05-28] VITALS: Ht 154.9 cm; Wt 72.6 kg
[~2020-05-28 02:10] MED LIST changes: +IRON325 M1 PO
--- OUTSIDE RECORDS SUMMARY | 2020-05-28 02:12 | XMS ---
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 Care History Medical/Surgical 04/13/2020 [facility] \T\nbsp;Patient has follow up with PCP, Dr. Ordonez on 05/27/2020. She has an EGD coming up this month.\T\nbsp; 02/24/2020 [facility] Patient was advised that walk in clinic closed at time of service in ED and care ride would not take her to Urgent Care at [facility] without charging her.\T\nbsp; Patient aware of scheduled\T\nbsp; follow up on 02/26/[address] Ordonez. 02/11/2020 [facility] Patient scheduled for follow up with Dr. Ordonez on 02/26/2020. E.Sahra. VISIT COUNT (12 MO.) 10 [facility] H. TOTAL 10 NOTE: Visits indicate total known visits. 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 - Migraine, unspecified, not intractable, without status migrai - Peptic ulcer, site unspecified, unspecified as acute or chron - Chest pain, unspecified 02/09/2020 23:45 [facility] [place] TYPE: Emergency COMPLAINT: - LEG INJURY/PAIN DIAGNOSES: - Pain in left lower leg - Other correction (current) drug therapy - Migraine, unspecified, not intractable, without status migrai - Pain in left lower leg - Pain in left thigh - Nicotine dependence, unspecified, uncomplicated 02/04/2020 15:45 [facility] [place] TYPE: Emergency COMPLAINT: - L FOOT INJURY DIAGNOSES: - Other correction (current) drug therapy - Nondisplaced fracture of proximal phalanx of left lesser toe( - Nicotine dependence, unspecified, uncomplicated - Pain in left toe(s) - Walked into wall, initial encounter - Migraine, unspecified, not intractable, without status migrai 12/11/2019 18:43 [facility] [place] TYPE: Emergency COMPLAINT: - SKIN PROBLEM/SORE THROAT DIAGNOSES: - Contact with and (suspected) exposure to viral hepatitis - Other correction (current) drug therapy - Pruritus, unspecified - Acquired absence of other specified parts of digestive tract - Acute upper respiratory infection, unspecified - Nicotine dependence, unspecified, uncomplicated 10/17/2019 09:43 [facility] [place] TYPE: Emergency COMPLAINT: - POSS SPIDER BITE, NAUSEA DIAGNOSES: - Headache - Other correction (current) drug therapy - Nicotine dependence, unspecified, [...] - Nicotine dependence, unspecified, uncomplicated 06/22/2019 23:[address] [facility] [place] TYPE: Emergency COMPLAINT: - SKIN PROBLEM DIAGNOSES: - Residual hemorrhoidal skin tags - Nicotine dependence, unspecified, uncomplicated - Disorder of the skin and subcutaneous tissue, unspecified INPATIENT VISIT TRACKING (12 MO.) No inpatient visits to display in this time frame [id number]
== END 2020-05-28 05:03 | disposition home or self-care (01) ==
LOC: ED 02:10
DX: R10.11 Right upper quadrant pain (principal); R10.32 Left lower quadrant pain; G43.909 Migraine, unspecified, not intractable, without status migrainosus; F17.200 Nicotine dependence, unspecified, uncomplicated; Z79.899 Other long term (current) drug therapy
CPT/HCPCS: 74177; 80053; 81001; 83690; 84703; 85025; 96361; 96375; 99284-25; J1885; J2405; J7030; Q9967

== ENCOUNTER 2021-01-01 10:13 | Emergency (ER) | payer OTHER ==
[~2021-01-01] VITALS: Ht 154.9 cm; Wt 68.0 kg
--- OUTSIDE RECORDS SUMMARY | 2021-01-01 10:16 | XMS ---
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 Care History Medical/Surgical 05/29/2020 [facility] Patient seen by Zac Holguin in Walk In Clinic on 05/05/2020 for on going abdominal pain, but not getting any relief.\T\nbsp; Had appointment scheduled with Dr. Ordonez on 05/27/2020, but patient no showed. I left voice mail for return call. 04/13/2020 [facility] \T\nbsp;Patient has follow up with PCP, Dr. Ordonez on 05/27/2020. She has an EGD coming up this month.\T\nbsp; 02/24/2020 [facility] Patient was advised that walk in clinic closed at time of service in ED and care ride would not take her to Urgent Care at [facility] without charging her.\T\nbsp; Patient aware of scheduled\T\nbsp; follow up on 02/26/[address] Ordonez. Meghan VISIT COUNT (12 MO.) 6 [facility] TOTAL 6 NOTE: Visits indicate total known visits. ED/C VISIT TRACKING (12 MO.) 01/01/2021 10:15 [facility] [place] TYPE: Emergency COMPLAINT: - HEADACHE, COUGH, SOB 05/28/2020 02:10 [facility] [place] TYPE: Emergency COMPLAINT: - ABDOMENAL PAIN DIAGNOSES: - Migraine, unspecified, not intractable, without status migrainosus - Other usp (current) drug therapy - Right upper quadrant pain - Nicotine dependence, unspecified, uncomplicated - Left lower quadrant pain 04/12/2020 11:11 [facility] [place] TYPE: Emergency COMPLAINT: - ABD PAIN DIAGNOSES: - Peptic ulcer, site unspecified, unspecified as acute or chronic, without hemorrhage or perforation - Other 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 coordinator (current) drug therapy - Unspecified abdominal pain - Migraine, unspecified, not intractable, without status migrainosus - Nicotine dependence, unspecified, uncomplicated 02/22/2020 14:15 [facility] [place] TYPE: Emergency COMPLAINT: - CHEST PAIN DIAGNOSES: - Nicotine dependence, unspecified, uncomplicated - Other 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 coordinator (current) drug therapy - Migraine, unspecified, not intractable, without status migrainosus - Peptic ulcer, site unspecified, unspecified as acute or chronic, without hemorrhage or perforation - Chest pain, unspecified 02/09/2020 23:45 [facility] [place] TYPE: Emergency COMPLAINT: - LEG INJURY/PAIN DIAGNOSES: - Pain in left lower leg - Other usp (current) drug therapy - Migraine, unspecified, not intractable, without status migrainosus - Pain in left lower leg - Pain in left thigh - Nicotine dependence, unspecified, uncomplicated 02/04/2020 15:45 [facility] [place] TYPE: Emergency COMPLAINT: - L FOOT INJURY DIAGNOSES: - Other usp (current) drug therapy - Nondisplaced fracture of proximal phalanx of left lesser toe(s), initial encounter for closed fracture - Nicotine dependence, unspecified, uncomplicated - Pain in left toe(s) - Walked into wall, initial encounter - Migraine, unspecified, not intractable, without status migrainosus INPATIENT VISIT TRACKING (12 MO.) No inpatient visits to display in this time frame [email or web address]
== END 2021-01-01 13:01 | disposition home or self-care (01) ==
LOC: ED 10:13
DX: U07.1 COVID-19 (principal); J40 Bronchitis, not specified as acute or chronic; G43.909 Migraine, unspecified, not intractable, without status migrainosus; F17.200 Nicotine dependence, unspecified, uncomplicated
CPT/HCPCS: 71045; 99285-25; A9270; C9803; U0003

== ENCOUNTER 2021-04-21 12:30 | Emergency (ER) | payer OTHER ==
[~2021-04-21] VITALS: Ht 154.9 cm; Wt 81.7 kg
--- OUTSIDE RECORDS SUMMARY | 2021-04-21 12:32 | XMS ---
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 Care History Medical/Surgical 01/04/2021 [facility] - CH[facility] CALLED [phone]-PATIENT NO LONGER HAS THE CONTACT NUMBER- SOMEONE ELSE ANSWERED AND STATED. WRONG PHONE NUMBER Please update patient phone number when seen. CHW needs to contact patient 05/29/2020 [facility] Patient seen by Zac Holguin in Walk In Clinic on 05/05/2020 for on going abdominal pain, but not getting any relief.\T\nbsp; Had appointment scheduled with Dr. Ordonez on 05/27/2020, but patient no showed. I left voice mail for return call. 04/13/2020 [facility] \T\nbsp;Patient has follow up with PCP, Dr. Ordonez on 05/27/2020. She has an EGD coming up this month.\T\nbsp; Meghan VISIT COUNT (12 MO.) 3 [facility] TOTAL 3 NOTE: Visits indicate total known visits. ED/UCC VISIT TRACKING (12 MO.) 04/21/2021 12:31 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
[2021-04-21] MEDS ORDERED: ONDANSETRON ODT8 MG PO (16:27)
== END 2021-04-21 16:55 | disposition home or self-care (01) ==
LOC: ED 12:30
DX: R10.30 Lower abdominal pain, unspecified (principal); R10.10 Upper abdominal pain, unspecified; F11.23 Opioid dependence with withdrawal; G43.909 Migraine, unspecified, not intractable, without status migrainosus; F17.200 Nicotine dependence, unspecified, uncomplicated
CPT/HCPCS: 80053; 81001; 83690; 84703; 85025; 96374; 96375; 99284-25; J1885; J2405; J7030

== ENCOUNTER 2021-05-29 12:23 | Emergency (ER) | payer OTHER ==
[~2021-05-29] VITALS: Ht 154.9 cm; Wt 82.7 kg
[~2021-05-29 12:23] MED LIST changes: +ONDANSETRON ODT8 MG PO
--- OUTSIDE RECORDS SUMMARY | 2021-05-29 12:24 | XMS ---
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 Care History Medical/Surgical 01/04/2021 [facility] - CHW CALLED [phone]-PATIENT NO LONGER HAS THE CONTACT NUMBER- SOMEONE ELSE ANSWERED AND STATED. WRONG PHONE NUMBER Please update patient phone number when seen. CHW needs to contact patient 05/29/2020 [facility] Patient seen by Zac Holguin in Walk In Clinic on 05/05/2020 for on going abdominal pain, but not getting any relief.\T\nbsp; Had appointment scheduled with Dr. Ordonez on 05/27/2020, but patient no showed. I left voice mail for return call. 04/13/2020 [facility] \T\nbsp;Patient has follow up with PCP, Dr. Ordonez on 05/27/2020. She has an EGD coming up this month.\T\nbsp; E.D. VISIT COUNT (12 MO.) 3 [facility]. TOTAL 3 NOTE: Visits indicate total known visits. ED/UCC VISIT TRACKING (12 MO.) 05/29/2021 12:23 [facility] [place] TYPE: Emergency COMPLAINT: - FINGER PAIN/ INJ 04/21/2021 12:31 [facility] [place] TYPE: Emergency COMPLAINT: - LOWER ABD PAIN DIAGNOSES: - Migraine, unspecified, not intractable, without status migrainosus - Opioid dependence with withdrawal - Upper abdominal pain, unspecified - Unspecified abdominal pain - Nicotine dependence, unspecified, uncomplicated - Lower abdominal pain, unspecified - Lower abdominal pain, unspecified 01/01/2021 10:15 [facility] [place] TYPE: Emergency COMPLAINT: - HEADACHE, COUGH, SOB DIAGNOSES: - Bronchitis, not specified as acute or chronic - Migraine, unspecified, not intractable, without status migrainosus - Nicotine dependence, unspecified, uncomplicated - Cough - COVID-19 INPATIENT VISIT TRACKING (12 MO.) No inpatient visits to display in this time frame [email or web address]
== END 2021-05-29 13:12 | disposition home or self-care (01) ==
LOC: ED 12:23
DX: S63.614A Unspecified sprain of right ring finger, initial encounter (principal); W01.10XA Fall on same level from slipping, tripping and stumbling with subsequent striking against unspecified object, initial encounter; G43.909 Migraine, unspecified, not intractable, without status migrainosus; F17.200 Nicotine dependence, unspecified, uncomplicated
CPT/HCPCS: 73140; 99283-25

== ENCOUNTER 2021-07-17 18:49 | Emergency (ER) | payer OTHER ==
[~2021-07-17] VITALS: Ht 154.9 cm; Wt 82.5 kg
--- OUTSIDE RECORDS SUMMARY | 2021-07-17 18:52 | XMS ---
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 Events No recent Security Events currently on file CRITERIA MET - [facility] Care Guidelines CARE PROVIDERS ESTELITA ORDONEZ Family Medicine 04/22/2021-Current PHONE: [phone] ESTEPHANIE ALMEIDA Nurse Practitioner: Women's Health 04/10/2018-Current PHONE: [phone] CYDNEY GARCIA Internal Medicine: Pulmonary Disease 04/03/2019-Current PHONE: Unknown Guidelines Source: [facility] Guidelines Date: 05/31/2021 Other Information: This patient has not been established with [facility] Clinic providers since 2018 with several No Shows to re-establish care. She has a history or Walk In visits. Patient is active with [facility] insurance. No listed phone numbers are active. Care History Medical/Surgical 01/04/2021 [facility] - [facility] CALLED [phone]-PATIENT NO LONGER HAS THE CONTACT NUMBER- SOMEONE ELSE ANSWERED AND STATED. WRONG PHONE NUMBER Please update patient phone number when seen. CHW needs to contact patient 05/29/2020 [facility] Patient seen by Zac Holguin in Walk In Clinic on 05/05/2020 for on going abdominal pain, but not getting any relief.\T\nbsp; Had appointment scheduled with Dr. Ordonez on 05/27/2020, but patient no showed. I left voice mail for return call. 04/13/2020 [facility] \T\nbsp;Patient has follow up with PCP, Dr. Ordonez on 05/27/2020. She has an EGD coming up this month.\T\nbsp; E.D. VISIT COUNT (12 MO.) 4 [facility]. TOTAL 4 NOTE: Visits indicate total known visits. ED/UCC VISIT TRACKING (12 MO.) 07/17/2021 18:50 [facility] [place] TYPE: Emergency COMPLAINT: - COLD SYMPTOMS 05/29/2021 12:23 [facility] [place] TYPE: Emergency COMPLAINT: - FINGER PAIN/ INJ DIAGNOSES: - Displaced fracture of middle phalanx of right ring finger, initial encounter for closed fracture - Unspecified sprain of right ring finger, initial encounter - Nicotine dependence, unspecified, uncomplicated - Fall on same level from slipping, tripping and stumbling with subsequent striking against unspecified object, initial encounter - Migraine, unspecified, not intractable, without status migrainosus 04/21/2021 12:31 [facility] [place] TYPE: Emergency [...] visits to display in this time frame [id number]
== END 2021-07-17 19:38 | disposition home or self-care (01) ==
LOC: ED 18:49
DX: J98.8 Other specified respiratory disorders (principal); B97.89 Other viral agents as the cause of diseases classified elsewhere; Z20.822 Contact with and (suspected) exposure to COVID-19; G43.909 Migraine, unspecified, not intractable, without status migrainosus; F17.200 Nicotine dependence, unspecified, uncomplicated
CPT/HCPCS: 99285; C9803; U0003

== ENCOUNTER 2022-02-06 15:39 | Emergency (ER) | payer OTHER ==
[~2022-02-06] VITALS: Ht 154.9 cm; Wt 72.6 kg
--- OUTSIDE RECORDS SUMMARY | 2022-02-06 15:42 | XMS ---
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 - Patient with suicidal and/or homicidal ideations eloped. - Patient eloped with IV in place. Details: PATIENT LEFT AMA Elopement at [facility] 10/18/2021 23:14 - Other Details: PATIENT LWBS Elopement at [facility] 09/29/2021 14:13 - Other Details: PATIENT LWBS CRITERIA MET - [facility] - Has Care Guidelines - 6 ED Visits in 6 Months CARE PROVIDERS ESTELITA ORDONEZ [facility] 04/22/2021-Current PHONE: [phone] ESTEPHANIE ALMEIDA Nurse Practitioner: Women's Health 04/10/2018-Current PHONE: [phone] CYDNEY GARCIA Internal Medicine: Pulmonary Disease 04/03/2019-Current PHONE: Unknown Guidelines Source: [facility] Guidelines Date: 05/31/2021 Other Information: This patient has not been established with [facility] Clinic providers since 2019 with several No Shows to re-establish care. She has a history or Walk In visits. Patient is active with [employer] insurance. No listed phone numbers are active. Care History Medical/Surgical 01/04/2021 [facility] - [facility] CALLED [phone]-PATIENT NO LONGER HAS THE CONTACT NUMBER- SOMEONE ELSE ANSWERED AND STATED. WRONG PHONE NUMBER Please update patient phone number when seen. CHW needs to contact patient 05/29/2020 [facility] Patient seen by Zac Holguin in Walk In Clinic on 05/05/2020 for on going abdominal pain, but not getting any relief.\T\nbsp; Had appointment scheduled with Dr. Ordonez on 05/27/2020, but patient no showed. I left voice mail for return call. 04/13/2020 [facility] \T\nbsp;Patient has follow up with PCP, Dr. Ordonez on 05/27/2020. She has an EGD coming up this month.\T\nbsp; E.D. VISIT COUNT (12 MO.) 9 [facility]. TOTAL 9 NOTE: Visits indicate total known visits. ED/UCC VISIT TRACKING (12 MO.) 02/06/2022 15:40 [facility] [place] TYPE: Emergency COMPLAINT: - CHEST PAIN 12/28/2021 09:05 [facility] [place] TYPE: Emergency COMPLAINT: - HEADACHE, NO TASTE, COUGH/CONGESTION 12/26/2021 20:40 [facility] [place] TYPE: Emergency COMPLAINT: - HEADACHE DIAGNOSES: - Procedure and treatment not carried out due to patient leaving prior to being seen by health care provider 10/18/2021 23:14 [facility] [place] TYPE: Emergency COMPLAINT: - EYE LACERATION 09/29/2021 14:13 [facility] [place] TYPE: Emergency COMPLAINT: - HEADACHE, SOB, UNABLE TO TASTE 08/25/2021 14:05 [facility] [place] TYPE: Emergency COMPLAINT: - HAND PAIN/SWELLING 07/17/2021 18:50 [facility] [place] TYPE: Emergency COMPLAINT: - COLD SYMPTOMS DIAGNOSES: - Headache, unspecified - Contact with and (suspected) exposure to COVID-19 - Migraine, unspecified, not intractable, without status migrainosus - Other specified respiratory disorders - Nicotine dependence, unspecified, uncomplicated - Other viral agents as the cause of diseases classified elsewhere 05/29/2021 12:23 [facility] [place] TYPE: Emergency COMPLAINT: - FINGER PAIN/ [...] pain, unspecified - Lower abdominal pain, unspecified INPATIENT VISIT TRACKING (12 MO.) No inpatient visits to display in this time frame [email or web address]
[2022-02-06] MEDS ORDERED: OMEPRAZOLE20 MG PO (17:19)
--- NOTE | 2022-02-06 21:44 | EKG ---
[facility] [address] [facility] [address] [place], [place] [address] Signed Normal sinus rhythm Normal ECG When compared with ECG of 22-FEB-2020 14:20, No significant change was found Confirmed by DAVIDE PARRA MD ([id number]) on 02/06/2022 9:44:36 PM Electronically Signed By: DAVIDE PARRA MD 02/06/22 2144 PATIENT NAME: VIDAL GURROLAWendy VERAEE Electrocardiogram DATE OF : 76 PHYSICIAN: DAVIDE PARRA MD REPORT #: [id number] REPORT IS CONFIDENTIAL AND NOT TO BE RELEASED WITHOUT AUTHORIZATION
== END 2022-02-06 17:25 | disposition home or self-care (01) ==
LOC: ED 15:39
DX: K29.70 Gastritis, unspecified, without bleeding (principal)
CPT/HCPCS: 36415; 71045; 80053; 83690; 83735; 84484; 85025; 85060; 93005; 93010; 96374; 99285-25; C9113

== ENCOUNTER 2022-06-11 09:09 | Emergency (ER) | payer OTHER ==
[~2022-06-11] VITALS: Ht 154.9 cm; Wt 72.7 kg
--- OUTSIDE RECORDS SUMMARY | 2022-06-11 09:10 | XMS ---
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 - Patient with suicidal and/or homicidal ideations eloped. - Patient eloped with IV in place. Details: PATIENT LEFT AMA Elopement at [facility] 10/18/2021 23:14 - Other Details: PATIENT LWBS Elopement at [facility] 09/29/2021 14:13 - Other Details: PATIENT LW CRITERIA MET - [facility] - Has Care Guidelines - [facility] - 2 Visits in 30 Days CARE PROVIDERS ESTELITA ORDONEZ [facility] 04/22/2021-Current PHONE: Unknown ESTEPHANIE ALMEIDA Nurse Practitioner: Women's Health 04/10/2018-Current PHONE: [phone] CYDNEY GARCIA Internal Medicine: Pulmonary Disease 04/03/2019-Current PHONE: Unknown Guidelines Source: [facility] Guidelines Date: 05/31/2021 Other Information: This patient has not been established with [facility] Clinic providers since 2018 with several No Shows to re-establish care. She has a history or Walk In visits. Patient is active with [employer] insurance. No listed phone numbers are active. Care History Medical/Surgical 01/04/2021 [facility] - CH[facility] CALLED [phone]-PATIENT NO LONGER HAS THE CONTACT NUMBER- SOMEONE ELSE ANSWERED AND STATED. WRONG PHONE NUMBER Please update patient phone number when seen. CHW needs to contact patient 05/29/2020 [facility] Patient seen by aZc Holguin in Walk In Clinic on 05/05/2020 for on going abdominal pain, but not getting any relief.\T\nbsp; Had appointment scheduled with Dr. Ordonez on 05/27/2020, but patient no showed. I left voice mail for return call. 04/13/2020 [facility] \T\nbsp;Patient has follow up with PCP, Dr. Ordonez on 05/27/2020. She has an EGD coming up this month.\T\nbsp; E.D. VISIT COUNT (12 MO.) 9 [facility]. TOTAL 9 NOTE: Visits indicate total known visits. ED/UCC VISIT TRACKING (12 MO.) 06/11/2022 09:09 [facility] [place] TYPE: Emergency COMPLAINT: - RT FOOT INJ 06/10/2022 12:28 [facility] [place] TYPE: Emergency COMPLAINT: - R FOOT INJURY 02/06/2022 15:40 [facility] [place] TYPE: Emergency COMPLAINT: - CHEST PAIN DIAGNOSES: - Upper abdominal pain, unspecified - Gastritis, unspecified, without bleeding 12/28/2021 09:05 [facility] [place] TYPE: Emergency [...] Emergency COMPLAINT: - COLD SYMPTOMS DIAGNOSES: - Other viral agents as the cause of diseases classified elsewhere - Other specified respiratory disorders - Contact with and (suspected) exposure to COVID-19 - Nicotine dependence, unspecified, uncomplicated - Migraine, unspecified, not intractable, without status migrainosus - Headache, unspecified INPATIENT VISIT TRACKING (12 MO.) No inpatient visits to display in this time frame [id number]
[2022-06-11] MEDS ORDERED: HYDROCODON-ACE1 EA10 PO (10:35)
== END 2022-06-11 10:41 | disposition home or self-care (01) ==
LOC: ED 09:09
DX: S92.504A Nondisplaced unspecified fracture of right lesser toe(s), initial encounter for closed fracture (principal); W22.8XXA Striking against or struck by other objects, initial encounter; G43.909 Migraine, unspecified, not intractable, without status migrainosus; F17.200 Nicotine dependence, unspecified, uncomplicated; Z79.899 Other long term (current) drug therapy
CPT/HCPCS: 73630; 99283-25; A9270

== ENCOUNTER 2023-01-29 14:27 | Emergency (ER) | payer OTHER ==
[~2023-01-29] VITALS: Ht 154.9 cm; Wt 72.7 kg
[~2023-01-29 14:27] MED LIST changes: +HYDROCODON-ACE1 EA10 PO
[2023-01-29] MEDS ORDERED: PENICILLIN V P500 MG PO (19:11)
[2023-01-29 19:38] VITALS: BP 104/72
== END 2023-01-29 19:39 | disposition home or self-care (01) ==
LOC: ED 14:27
DX: J06.9 Acute upper respiratory infection, unspecified (principal); K04.7 Periapical abscess without sinus; G43.909 Migraine, unspecified, not intractable, without status migrainosus; F17.200 Nicotine dependence, unspecified, uncomplicated; Z79.899 Other long term (current) drug therapy; Z20.822 Contact with and (suspected) exposure to COVID-19
CPT/HCPCS: 36415; 70491; 80053; 84703; 85025; 85060; 87502; 96375; 99284-25; C9803; J0696; J1100; J1885; J7030; Q9967; U0002

== ENCOUNTER 2023-02-09 22:15 | Emergency (ER) | payer OTHER ==
[~2023-02-09] VITALS: Ht 154.9 cm; Wt 76.0 kg
[~2023-02-09 22:15] MED LIST changes: +PENICILLIN V P500 MG PO
--- OUTSIDE RECORDS SUMMARY | 2023-02-09 22:18 | XMS ---
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 - Patient with suicidal and/or homicidal ideations eloped. - Patient eloped with IV in place. Details: PATIENT LEFT AMA Elopement at [facility] 10/18/2021 23:14 - Other Details: PATIENT LWBS Elopement at [facility] 09/29/2021 14:13 - Other Details: PATIENT LWBS CRITERIA MET - [facility] - 2 Visits in 30 Days CARE PROVIDERS -Jocelyn- Dentist: Inventory Associate And Driver [facility] PHONE: [phone] ESTELITA ORDONEZ [facility] 04/22/2021-Current PHONE: Unknown ESTEPHANIE ALMEIDA Nurse Practitioner: Women's Health 04/10/2018-Current PHONE: [phone] CYDNEY GARCIA Internal Medicine: Pulmonary Disease 04/03/2019-Current PHONE: Unknown Guidelines Source: [facility] Guidelines Date: 05/31/2021 Other Information: This patient has not been established with [facility] Clinic providers since 2019 with several No Shows to re-establish care. She has a history or Walk In visits. Patient is active with [employer] insurance. No listed phone numbers are active. Care History Medical/Surgical 01/04/2021 [facility] - [facility] CALLED [phone]-PATIENT NO LONGER HAS THE CONTACT NUMBER- SOMEONE ELSE ANSWERED AND STATED. WRONG PHONE NUMBER Please update patient phone number when seen. [facility] needs to contact patient 05/29/2020 [facility] Patient seen by Zac [...] month.\T\nbsp; E.D. VISIT COUNT (12 MO.) 4 [facility] TOTAL 4 NOTE: Visits indicate total known visits. ED/UCC VISIT TRACKING (12 MO.) 02/09/2023 22:16 [facility] TYPE: Emergency COMPLAINT: - SOB 01/29/2023 14:28 [facility] TYPE: Emergency COMPLAINT: - SOB, NO TASTE, UNABLE TO SWALLOW DIAGNOSES: - Acute upper respiratory infection, unspecified - Contact with and (suspected) exposure to COVID-19 - Cough, unspecified - Migraine, unspecified, not intractable, without status migrainosus - Nicotine dependence, unspecified, uncomplicated - Other retirement (current) drug therapy - Periapical abscess without sinus 06/11/2022 09:09 [facility] TYPE: Emergency COMPLAINT: - RT FOOT INJ DIAGNOSES: - Migraine, unspecified, not intractable, without status migrainosus - Nicotine dependence, unspecified, uncomplicated - Nondisplaced unspecified fracture of right lesser toe(s), initial encounter for closed fracture - 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
[2023-02-09] MEDS ORDERED: LEVOFLOXACIN750 MG PO (23:19)
[2023-02-09 23:42] VITALS: BP 106/80
== END 2023-02-09 23:42 | disposition home or self-care (01) ==
LOC: ED 22:15
DX: J45.901 Unspecified asthma with (acute) exacerbation (principal); G43.909 Migraine, unspecified, not intractable, without status migrainosus; F17.200 Nicotine dependence, unspecified, uncomplicated; Z79.899 Other long term (current) drug therapy
CPT/HCPCS: 71045; 94640; 94664; 96374; 99285-25; J2930

== ENCOUNTER 2023-09-10 02:19 | Emergency (ER) | payer OTHER ==
[~2023-09-10] VITALS: Ht 154.9 cm; Wt 65.0 kg
[~2023-09-10 02:19] MED LIST changes: +CEPHALEXIN500 M1 PO; +LEVOFLOXACIN750 MG PO
[2023-09-10 02:48] LABS: HEMOGLOBIN 8.4 g/dL (12.0-18.0); NEUTROPHILS 66.6 % (39-80)
[2023-09-10 02:51] LABS: BASOPHILS 0.3 % (0-2); EOSINOPHILS 0.8 % (0-6); HEMATOCRIT 29.4 % (35.0-50.0); LYMPHOCYTES 24.1 % (24-44); MCH 17.2 (27-36); MCHC 28.5 g/dl (30-36); MCV 60.5 fl (81-99); MONOCYTES 8.2 % (0-12); PLATELET COUNT 220 K/uL (140-440); RBC 4.86 M/ul (4.3-5.7); RDW 41.9 (10.5-15.0)
[2023-09-10 02:54] LABS: INR 1.02 (0.80-1.30)
[2023-09-10 03:09] LABS: ALBUMIN 2.3 g/dL (3.4-5.0); ALBUMIN/GLOBULIN RATIO 0.5 (1.1-2.4); ANION GAP 12.5 (7-21); BILIRUBIN, TOTAL 0.2 ng/dL (0.2-1.0); BUN/CREATININE RATIO 11.25 (6.0-28.6); CALCIUM 8.9 mg/dL (8.5-10.1); CREATININE, SERUM 0.8 mg/dL (0.55-1.02); POTASSIUM 3.5 mmol/L (3.5-5.1); PROTEIN, TOTAL 6.9 g/dL (6.4-8.2)
[2023-09-10 03:27] LABS: LACTIC ACID, BLOOD 1.5 mmol/L (0.4-2.0)
[2023-09-10 03:33] LABS: ABO O; RH POSITIVE
[2023-09-10 03:53] LABS: BILIRUBIN, URINE NEGATIVE (negative); BLOOD/HGB, URINE LARGE (Negative); KETONE, URINE NEGATIVE (Negative); LEUK ESTERASE, URINE NEGATIVE (negative); NITRITE, URINE NEGATIVE (negative)
[2023-09-10 03:56] LABS: EPITHELIAL CELLS, URINE SQUAMOUS 1+ /lpf (0-1+); REFLEX CULTURE, URINE No (No)
[2023-09-10 04:01] LABS: ANTIBODY SCREEN NEGATIVE
[2023-09-10 04:06] LABS: AMPHETAMINES, URINE POSITIVE (NEGATIVE); BARBITURATES, URINE NEGATIVE (NEGATIVE); BENZODIAZEPINE, URINE NEGATIVE (NEGATIVE); BUPRENORPHINE, URINE NEGATIVE (NEGATIVE); CANNABINOID, URINE NEGATIVE (NEGATIVE); COCAINE, URINE NEGATIVE (NEGATIVE); ECSTASY, URINE NEGATIVE (NEGATIVE); FENTANYL, URINE NEGATIVE (NEGATIVE); METHADONE, URINE NEGATIVE (NEGATIVE); OPIATES, URINE POSITIVE (NEGATIVE); OXYCODONE, URINE NEGATIVE (NEGATIVE); PHENCYCLIDINE, URINE NEGATIVE (NEGATIVE)
[2023-09-10] MEDS ORDERED: CEFDINIR300 MG PO (04:32)
[2023-09-10] MEDS ORDERED: TRAMADOL HCL50 MG PO (04:32)
[2023-09-10 04:50] VITALS: BP 112/82
== END 2023-09-10 04:50 | disposition home or self-care (01) ==
LOC: ED 02:19
PROVIDERS: Family Medicine
DX: N39.0 Urinary tract infection, site not specified (principal); J45.909 Unspecified asthma, uncomplicated; F17.200 Nicotine dependence, unspecified, uncomplicated
CPT/HCPCS: 36415; 74176; 80053; 80307; 81001; 83605; 84703; 85025; 85610; 86850; 86900; 86901; A9270; J2270; J2405; J7121